=== PATIENT | female | born 1990 | race Caucasian/White ===

== ENCOUNTER 2018-05-07 15:50 | Inpatient (IN) | payer MEDICAID ==
[2018-05-07] MEDS ORDERED: RINGERS SOLUTION,LACTATED 300 ML IV ONE (16:14)
[2018-05-07] MEDS ORDERED: DINOPROSTONE 10 MG VAGINAL INSERT.SR PV PRN (16:14)
[2018-05-07] MEDS ORDERED: RINGERS SOLUTION,LACTATED 1,000 ML IV PRN (16:14)
--- NOTE | 2018-05-07 16:32 | Admission Physical ---
Datetime Report Generated by CPN: 05/07/2018 16:32 CURRENT ADMISSION Hx Assessment: The History has been Reviewed and is Current Chief Complaint: Signs/Symptoms Gestational HTN; Sent from OB Office for Evaluation and Treatment - Please Specify Indication for Induction- Other: high blood pressure 150/90s at [facility] Admit Impression : Term, Intrauterine ; No Active Labor Admit Plan: Admit to Unit; Initiate Labor Induction Protocol ALLERGIES Medication Allergies: No Medication Allergies: No Known Allergies (08/22/2016) Latex: No Latex Allergies Food Allergies: N/A Environmental Allergies: N/A OBSTETRICAL HISTORY EDC: 05/12/2018 00:00 : 2 Para: 1 Term: 1 : 0 SAB: 0 IAB: 0 Ectopic: 0 Livin Cesareans: 0 VBACs: 0 Multiple Births: 0 SEE RECORDS Alcohol: Yes Alcohol Frequency: Occasional Advised to Stop: Yes Alcohol Comments: wine Marijuana : No Cocaine: No Other Illicit Drugs: No Cigarettes: Current Everyday Smoker. [id number] Cigarette Frequency: 5 - 10 per day Advised to Stop: Yes PHYSICAL EXAM General: Normal HEENT: Deferred Neurologic: Deferred Thyroid: Deferred Heart: Normal Lungs: Normal Breast: Deferred Back: Deferred Abdomen: Normal Genitourinary Exam: Normal Extremities: Normal DTRs: Deferred Pelvic Type: Adequate Physical Exam Comments: Cervical exam per Dr. Marrero at [facility] today, 2/80/0 Vital Signs: Reviewed FETUS A EGA: 39.2 FHR- Baseline: 140 Presentation: Vertex Admit Comment: Hd transfer to [facility] at 22 wks, pt has not been seen since then until today. She denies any sx of htn/pre-eclampsia. 3wk AC lag on sono today, normal JOSE L. Tobacco abuse no other significant hx PLANS FOR LABOR AND DELIVERY Labor and Delivery: None Pain Management: Epidural Feeding Preference: Breast Benefit of Breast Feed Discussed: Yes Circumcision: Yes INFORMED CONSENT Assignment: Bethel Shelton MD Signature: with User ID: [email or web address] : with User ID: [email or web address]
[2018-05-07 16:53] LABS: APPEARANCE,URINE SLIGHTLY-CLOUDY; BILIRUBIN,URINE NEGATIVE (NEGATIVE); CALCIUM OXALATE CRYSTALS,URINE FEW /HPF; COLOR,URINE YELLOW; GLUCOSE, URINE NEGATIVE (NEGATIVE); KETONES,URINE TRACE mg/dL (NEGATIVE); LEUKOCYTE ESTERASE,URINE NEGATIVE (NEGATIVE); NITRITE,URINE NEGATIVE (NEGATIVE); PROTEIN,URINE NEGATIVE (NEGATIVE); URINE SPECIFIC GRAVITY 1.014; UROBILINOGEN,URINE NEGATIVE mg/dL (<2.0)
[2018-05-07 17:00] LABS: HEMATOCRIT 31.9 % (36.0-47.0); HEMOGLOBIN 10.7 g/dL (12.0-15.5); MEAN CORPUSCULAR HEMOGLOBIN 30.2 pg (27.0-33.4); MEAN CORPUSCULAR HGB CONC 33.6 g/dL (32.0-36.0); MEAN CORPUSCULAR VOLUME 90 fl (80-97); PLATELET COUNT 406 10^3/uL (150-450); RED BLOOD COUNT 3.55 10^6/uL (3.72-5.28); RED CELL DISTRIBUTION WIDTH 14.6 % (11.5-14.0); WHITE BLOOD COUNT 16.3 10^3/uL (4.0-10.5)
[2018-05-07 17:19] LABS: ABSOLUTE LYMPHOCYTES# (MANUAL) 2.9 10^3/uL (0.5-4.7); ABSOLUTE MONOCYTES # (MANUAL) 1.1 10^3/uL (0.1-1.4); ABSOLUTE NEUTROPHILS# (MANUAL) 12.1 10^3/uL (1.7-8.2); BASOPHILS % (MANUAL) 0 % (0-2); EOSINOPHILS % (MANUAL) 1 % (0-6); LYMPHOCYTES % (MANUAL) 18 % (13-45); MONOCYTES % (MANUAL) 7 % (3-13); SEGMENTED NEUTROPHILS % (MAN) 74 % (42-78); TOTAL CELLS COUNTED 100
[2018-05-07 17:20] LABS: URINE BARBITURATES SCREEN NEGATIVE; URINE BENZODIAZEPINES SCREEN NEGATIVE; URINE COCAINE SCREEN NEGATIVE; URINE MARIJUANA (THC) SCREEN NEGATIVE; URINE METHADONE SCREEN NEGATIVE; URINE PHENCYCLIDINE SCREEN NEGATIVE
[2018-05-07 17:20] LABS: ANISOCYTOSIS SLIGHT; PLATELET COMMENT ADEQUATE; TOXIC GRANULATION SLIGHT
[2018-05-07 17:24] LABS: URINE AMPHETAMINES SCREEN UNCONFIRMED POSITIVE
[2018-05-07] MEDS ORDERED: MAG HYDROX/AL HYDROX/SIMETH SUSP 30 ML UDCUP ONE (18:18)
[2018-05-07 18:20] LABS: CHLAM PCR NOT DETECTED (NOT DETECT); GON PCR NOT DETECTED (NOT DETECT)
[2018-05-07] MEDS ORDERED: DINOPROSTONE 10 MG VAGINAL INSERT.SR ONE (19:44)
[2018-05-07] MEDS ORDERED: NICOTINE 14 MG/24 HR PATCH.TD24 TD PRN (22:00)
[2018-05-08] MEDS ORDERED: MAG HYDROX/AL HYDROX/SIMETH SUSP 30 ML UDCUP ONE (02:35)
[2018-05-08] MEDS ORDERED: MAG HYDROX/AL HYDROX/SIMETH SUSP 30 ML UDCUP PO ONE (02:55)
[2018-05-08] MEDS ORDERED: PENICILLIN G-K 5 MILLION UNIT VIAL ONE ×3 (03:59→12:53)
[2018-05-08] MEDS ORDERED: PENICILLIN G-K 5 MILLION UNIT VIAL IV ONE (04:00)
[2018-05-08] MEDS ORDERED: OXYTOCIN/NORMAL SALINE 1,000 ML IV PRN (04:00)
[2018-05-08] MEDS ORDERED: PENICILLIN G POTASSIUM 5,000,000 UNIT in DEXTROSE 5%-WATER 100 ML IV ONE (05:00)
[2018-05-08] MEDS ORDERED: OXYTOCIN/NORMAL SALINE 20 UNIT/1,000 ML RTUINJ IV PRN ×2 (05:30→16:23)
[2018-05-08] MEDS ORDERED: OXYTOCIN/NORMAL SALINE 20 UNIT/1,000 ML RTUINJ ONE ×2 (05:41→18:13)
[2018-05-08] MEDS ORDERED: LIDOCAINE 1% INJ-PF (10 MG/ML) 30 ML SDV ONE (05:41)
[2018-05-08] MEDS ORDERED: MISOPROSTOL 0.2 MG TABLET ONE ×2 (05:41→17:55)
[2018-05-08] MEDS: PENICILLIN G POTASSIUM 2,500,000 UNIT in DEXTROSE 5%-WATER 50 ML IV SCH ×3 (13:01→23:04)
[2018-05-08] MEDS ORDERED: PHENYLEPHRINE HCL INJ/PF 10 MG/1 ML SDV ONE (14:09)
[2018-05-08] MEDS ORDERED: EPHEDRINE SULFATE INJ 50 MG/1 ML AMPULE ONE (14:09)
[2018-05-08] MEDS ORDERED: FENTANYL CITRATE INJ/PF 100 MCG/2 ML AMPUL ONE (14:09)
[2018-05-08] MEDS ORDERED: FENTANYL/BUPIVACAINE/NS/PF 200 MCG/100 ML RTUINJ EPI ONE (14:10)
[2018-05-08] MEDS ORDERED: BUPIVACAINE HCL 0.5 % INJ/PF 30 ML SDV ONE (14:11)
[2018-05-08] MEDS ORDERED: ZOLPIDEM TARTRATE 5 MG TABLET PO PRN (16:23)
[2018-05-08] MEDS ORDERED: PROMETHAZINE HCL INJ 25 MG/1 ML VIAL IV PRN (16:23)
[2018-05-08] MEDS ORDERED: PROMETHAZINE HCL 25 MG SUPP.RECT PR PRN (16:23)
[2018-05-08] MEDS ORDERED: DIPHENHYDRAMINE HCL 25 MG CAPSULE PO PRN (16:23)
[2018-05-08] MEDS ORDERED: DIPH/PERTUSS(ACELL)/TETANUS VAC/PF 0.5 ML SYR (>=10YO) IM PRN (16:23)
[2018-05-08] MEDS ORDERED: BENZOCAINE/MENTHOL AEROSOL SPRAY 56 ML TOP PRN (16:23)
[2018-05-08] MEDS ORDERED: GLYCERIN/WITCH HAZEL LEAF 1 EACH MED..PAD TP PRN (16:23)
[2018-05-08] MEDS ORDERED: PROMETHAZINE HCL 25 MG TABLET PO PRN (16:23)
[2018-05-08] MEDS ORDERED: MAGNESIUM HYDROXIDE SUSP 30 ML UDCUP PO PRN (16:23)
[2018-05-08] MEDS ORDERED: MEASLES,MUMPS&RUBELLA VACC/PF 0.5 ML VIAL SUBCUT PRN (16:23)
[2018-05-08] MEDS ORDERED: PSEUDOEPHEDRINE HCL 30 MG TABLET PO PRN (16:23)
[2018-05-08] MEDS ORDERED: ACETAMINOPHEN 650 MG SUPP.RECT PR PRN (16:23)
[2018-05-08] MEDS ORDERED: DIBUCAINE 1% OINTMENT 28 GM TP PRN (16:23)
[2018-05-08] MEDS ORDERED: NA PHOS,M-B/NA PHOS,DI-BA (ADULT) 133 ML ENEMA PR PRN (16:23)
[2018-05-08] MEDS ORDERED: ACETAMINOPHEN WITH CODEINE #3 TABLET PO PRN (16:23)
--- NOTE | 2018-05-08 17:42 | Delivery Summary ---
Del Sum A-C Datetime Report Generated by CPN: 05/08/2018 17:41 DELIVERY PERSONNEL DELIVERY PERSONNEL: [id number] Delivery Doctor:: Caprice Mann CNM Anesthesiologist:: Jayleen Frederick MD Labor and Delivery Nurse:: Girma Grier RNcurb supervisor Nurse:: YEISON Berry Nursery Nurse:: Smiley Smallwood RN Air Conditioning Sheet Metal Installer/SURVEYOR OIL WELL DIRECTIONAL: Sandie Garrison CNA II Air Conditioning Sheet Metal Installer/SURVEYOR OIL WELL DIRECTIONAL: Henny Hernandez, ST MATERNAL INFORMATION Delivery Anesthesia: Epidural Medications After Delivery: Pitocin Bolus-Please Comment Meds After Delivery Comment: 20 units pitocin in 1000mlNS Maternal Complications: None Provider Comments: ROP VIABLE MALE INFANT WITH SPONTANEOUS CRY. CORD DOUBLE CLAMPED AND CUT. PLACENTA EXPRESSED INTACT WITH 3VC. NO LACERATIONS. MOTHER AND INFANT STABLE IN L_D #6 LABOR SUMMARY EDC: 05/12/2018 00:00 No. Babies in Womb: 1 Attempted: No Labor Anesthesia: Epidural LABOR INFORMATION Reason for Induction: Gestational Hypertension Onset of Labor: 05/08/2018 11:00 Complete Dilatation: 05/08/2018 14:36 Oxytocin: Induction Group B Beta Strep: Unknown Antibiotics # of Doses: 3 Antibiotics Time of Last Dose: 1301 Name of Antibiotic Given: penicillin Steroids Given: None Reason Steroids Not Administered: Not Applicable MEMBRANES Membranes Rupture Method: Artificial Rupture of Membranes: 05/08/2018 10:36 Length of Rupture (hr): 4.62 Amniotic Fluid Color: Clear Amniotic Fluid Amount: Moderate Amniotic Fluid Odor: Normal STAGES OF LABOR Stage 1 hr: 3 Stage 1 min: 36 Stage 2 hr: 0 Stage 2 min: 37 Stage 3 hr: 0 Stage 3 min: 8 Total Time in Labor hr: 4 Total Time in Labor min: 21 VAGINAL DELIVERY Episiotomy: None Laceration #1: None Laceration Extension #1: N/A Laceration Repair: Not Applicable Sponge Count Correct: N/A CSECTION DELIVERY Primary Indication: N/A Secondary Indication: N/A CSection Incidence: N/A Labor: N/A Elective: N/A CSection Incision: N/A BABY A INFORMATION Infant Delivery Date/Time: 05/08/2018 15:13 Method of Delivery: Vaginal Born in Route : No : N/A Forceps: N/A Vacuum Extraction: N/A Shoulder Dystocia : No PRESENTATION/POSITION BABY A Presentation: Cephalic Cephalic Presentation: Vertex Vertex Position: Right Occipital Posterior Breech Presentation: N/A PLACENTA INFORMATION BABY A Placenta Delivery Time : 05/08/2018 15:21 Placenta Method of Delivery: Expressed Placenta Status: Delivered SCORES BABY A Heart Rate 1 min: >100 bpm Resp Effort 1 min: Good Cry Reflex Irritability 1 min: Cough or Sneeze or Pulls Away Muscle Tone 1 min: Active Motion Color 1 min: Blue/Pale Resuscitation Effort 1 min: Tactile Stimulation SCORE 1 MIN: 8 Heart Rate 5 min: >100 bpm Resp Effort 5 min: Good Cry Reflex Irritability 5 min: Cough or Sneeze or Pulls Away Muscle Tone 5 min: Active Motion Color 5 min: Body [place], Extremities Blue SCORE 5 MIN: 9 INFANT INFORMATION BABY A Gestational Age at Delivery: 39.3 Gestational Status: Full Term- 39- 40.6 Weeks Infant Outcome : Liveborn Condition : Stable Sex: Male IDENTIFICATION BABY A Verification Date/Time: 05/08/2018 15:27 ID Band Number: [id number] Mother's Name Verified: Yes RN Verifying Infant: Abhi Grier RN Additional Verifying Personnel: SJose Garrison CNA2 WEIGHT/LENGTH BABY A Infant Birthweight (gm): 3040 Weight (lb): 6 Weight (oz): 11 Infant Length (in): 20.00 Length (cm): 50.80 CORD INFORMATION BABY A No. Cord Vessels: 3 Nuchal Cord : N/A Cord Blood Taken: Yes-For Eval (Mom's Blood Type - or O+) Suction: None ASSESSMENT BABY A Skin to Skin: Yes Skin to Skin Time (min): 60 SIGNATURES Assignment: Joselito Lund MD Signature: with User ID: [email or web address] : with User ID: [email or web address] : I was personally available for consultation and serving as supervising physician for the P.
--- NOTE | 2018-05-08 18:02 | Warning Signs in Babies ---
VOD Warning Signs Datetime Report Generated by [facility]: 05/08/2018 18:01 VOD#[id number] -Warning Signs in Babies: Viewed with Parent(s)/Family (05/08/2018 18:00:Girma Grier RN)
[2018-05-08] MEDS ORDERED: METHYLERGONOVINE MALEATE INJ/PF 0.2 MG/1 ML AMPULE ONE (18:15)
[2018-05-08] MEDS ORDERED: ACETAMINOPHEN 325 MG TABLET PO ONE (18:42)
[2018-05-08] MEDS ORDERED: CARBOPROST TROMETHAMINE INJ 250 MCG/1 ML AMPULE IM ONE (18:46)
[2018-05-08] MEDS ORDERED: LOPERAMIDE HCL 2 MG CAPSULE PO ONE (18:47)
[2018-05-08] MEDS ORDERED: ACETAMINOPHEN 325 MG TABLET ONE (18:53)
[2018-05-08] MEDS ORDERED: LOPERAMIDE HCL 2 MG CAPSULE ONE ×2 (18:53→19:04)
[2018-05-08] MEDS ORDERED: CARBOPROST TROMETHAMINE INJ 250 MCG/1 ML AMPULE ONE (18:53)
[2018-05-08 19:37] LABS: HEMATOCRIT 27.4 % (36.0-47.0); HEMOGLOBIN 9.3 g/dL (12.0-15.5); MEAN CORPUSCULAR HEMOGLOBIN 30.6 pg (27.0-33.4); MEAN CORPUSCULAR VOLUME 90 fl (80-97); PLATELET COUNT 353 10^3/uL (150-450); RED BLOOD COUNT 3.05 10^6/uL (3.72-5.28); RED CELL DISTRIBUTION WIDTH 14.5 % (11.5-14.0)
[2018-05-08] MEDS ORDERED: IBUPROFEN 800 MG TABLET ONE (19:47)
[2018-05-08 19:53] LABS: ABSOLUTE LYMPHOCYTES# (MANUAL) 2.3 10^3/uL (0.5-4.7); ABSOLUTE MONOCYTES # (MANUAL) 1.6 10^3/uL (0.1-1.4); ABSOLUTE NEUTROPHILS# (MANUAL) 19.1 10^3/uL (1.7-8.2); ANISOCYTOSIS SLIGHT; BASOPHILS % (MANUAL) 0 % (0-2); EOSINOPHILS % (MANUAL) 0 % (0-6); LYMPHOCYTES % (MANUAL) 10 % (13-45); MONOCYTES % (MANUAL) 7 % (3-13); PLATELET COMMENT ADEQUATE; SEGMENTED NEUTROPHILS % (MAN) 83 % (42-78); TOTAL CELLS COUNTED 100; TOXIC GRANULATION SLIGHT
[2018-05-08] MEDS: DOCUSATE SODIUM 100 MG CAPSULE PO SCH (23:00)
[2018-05-08] MEDS: FERROUS SULFATE 325 MG TABLET PO SCH (23:00)
[2018-05-08] MEDS: FAMOTIDINE 20 MG TABLET PO SCH (23:02)
[2018-05-08] MEDS: IBUPROFEN 800 MG TABLET PO SCH (23:02)
[2018-05-09] MEDS: ACETAMINOPHEN WITH CODEINE #3 TABLET PO PRN (00:28)
[2018-05-09] MEDS: IBUPROFEN 800 MG TABLET PO SCH ×3 (05:35→22:42)
[2018-05-09 07:29] LABS: HEMATOCRIT 18.4 % (36.0-47.0); MEAN CORPUSCULAR HEMOGLOBIN 30.9 pg (27.0-33.4); MEAN CORPUSCULAR HGB CONC 33.8 g/dL (32.0-36.0); MEAN CORPUSCULAR VOLUME 91 fl (80-97); PLATELET COUNT 265 10^3/uL (150-450); RED BLOOD COUNT 2.02 10^6/uL (3.72-5.28); RED CELL DISTRIBUTION WIDTH 14.6 % (11.5-14.0); WHITE BLOOD COUNT 14.3 10^3/uL (4.0-10.5)
[2018-05-09 07:43] LABS: HEMOGLOBIN 6.2 g/dL (12.0-15.5)
[2018-05-09] MEDS: PRENATAL VITAMIN W DHA CAPSULE PO SCH (09:54)
[2018-05-09] MEDS: FERROUS SULFATE 325 MG TABLET PO SCH ×2 (09:54→18:14)
[2018-05-09] MEDS: SENNOSIDES/DOCUSATE 8.6-50 MG 1 EACH TABLET PO SCH (09:54)
[2018-05-09] MEDS: DOCUSATE SODIUM 100 MG CAPSULE PO SCH ×2 (09:54→18:14)
[2018-05-09] MEDS: FAMOTIDINE 20 MG TABLET PO SCH ×2 (09:54→22:42)
--- NOTE | 2018-05-09 11:11 | PDOC PROGRESS REPORT ---
Subjective-OB Progress Note for:: 05/09/18 Subjective: reports bleeding slowing, pain controlled with current meds, denies headache/SOB /dizziness/lightheadedness/extreme fatigue-discussed with Dr Gregorio-blood transfusion still recommended Physical Exam (OB) Vital Signs: Temp Pulse Resp BP Pulse Ox 98.4 F 97 18 132/62 H 98 05/09/18 07:42 05/09/18 07:42 05/09/18 07:42 05/09/18 07:42 05/09/18 07:42 Intake & Output 05/08/18 05/09/18 05/10/18 06:59 06:59 06:59 Weight 73.3 kg - Abdomen Description: Soft, Round Hernia Present: No Fundal Description: Firm, Midline Fundal Height: u/u - u/2 - Abdominal Tenderness: Nontender - Extremities Lower extremities: Juan's sign - neg Calf: Normal, Nontender Objective-Diagnostic Laboratory: 05/09/18 06:38 05/07/18 05/08/18 05/09/18 16:45 19:20 06:38 WBC 23.0 H 14.3 H RBC 3.05 L 2.02 L Hgb 9.3 L 6.2 L D Hct 27.4 L 18.4 L MCV 90 91 MCH 30.6 30.9 MCHC 34.0 33.8 RDW 14.5 H 14.6 H Plt Count 353 265 Seg Neutrophils % Not Reportable Lymphocytes % Not Reportable Monocytes % Not Reportable Eosinophils % Not Reportable Basophils % Not Reportable Absolute Neutrophils Not Reportable Absolute Lymphocytes Not Reportable Absolute Monocytes Not Reportable Absolute Eosinophils Not Reportable Absolute Basophils Not Reportable Blood Type O POSITIVE Antibody Screen NEGATIVE 05/07/18 16:19 Vaginal/Anorectal Group B Streptococcus Culture - Final NO GROUP B STREPTOCOCCUS RECOVERED Assessment and Plan(PN) - Assessment and Plan (1) Anemia due to acute blood loss Is this a current diagnosis for this admission?: Yes (2) Vaginal delivery Is this a current diagnosis for this admission?: Yes - Time Spent with Patient Time with patient: Less than 15 minutes - Disposition Anticipated Discharge: Home Within: within 24 hours
[2018-05-09 23:15] LABS: ABSOLUTE EOSINOPHILS # (AUTO) 0.1 10^3/uL (0.0-0.6); ABSOLUTE LYMPHOCYTES (AUTO) 3.2 10^3/uL (0.5-4.7); ABSOLUTE NEUT (AUTO) 10.5 10^3/uL (1.7-8.2); BASOPHILS % (AUTO) 0.3 % (0-2); EOSINOPHILS % (AUTO) 0.5 % (0-6); HEMATOCRIT 25.7 % (36.0-47.0); LYMPHOCYTES % (AUTO) 21.5 % (13-45); MEAN CORPUSCULAR HEMOGLOBIN 30.1 pg (27.0-33.4); MEAN CORPUSCULAR HGB CONC 33.9 g/dL (32.0-36.0); MEAN CORPUSCULAR VOLUME 89 fl (80-97); MONOCYTES % (AUTO) 7.1 % (3-13); PLATELET COUNT 281 10^3/uL (150-450); RED BLOOD COUNT 2.89 10^6/uL (3.72-5.28); RED CELL DISTRIBUTION WIDTH 15.7 % (11.5-14.0); SEGMENTED NEUTROPHILS % (AUTO) 70.6 % (42-78); TOTAL CELLS COUNTED % (AUTO) 100 %; WHITE BLOOD COUNT 14.8 10^3/uL (4.0-10.5)
[2018-05-09 23:16] LABS: HEMOGLOBIN 8.7 g/dL (12.0-15.5)
[2018-05-10] MEDS: ACETAMINOPHEN WITH CODEINE #3 TABLET PO PRN (02:06)
[2018-05-10] MEDS: IBUPROFEN 800 MG TABLET PO SCH (06:09)
--- NOTE | 2018-05-10 10:43 | PDOC DISCHARGE SUMMARY ---
Final Diagnosis Discharge Date: 05/10/18 - Final Diagnosis (1) Anemia due to acute blood loss Is this a current diagnosis for this admission?: Yes (2) Vaginal delivery Is this a current diagnosis for this admission?: Yes Discharge Data - Discharge Medication Prescriptions: Ibuprofen [Motrin 800 mg Tablet] 800 mg PO Q8HP PRN #60 tablet PRN Reason: Home Medications: Vit No.130/Iron/Folic [ Tablet] 1 each PO DAILY 05/07/18 Ferrous Sulfate [Feosol 325 mg Tablet] 325 mg PO BID tablet 05/10/18 Ibuprofen [Motrin 800 mg Tablet] 800 mg PO Q8HP PRN #60 tablet 05/10/18 Reason(s) for Admission: Induction of Labor Procedures: NST Intrapartum Procedure(s): Spontaneous Vaginal Delivery - Diagnosis Test Laboratory: Temp Pulse Resp BP Pulse Ox 97.9 F 70 14 124/69 99 05/10/18 07:35 05/10/18 07:35 05/10/18 07:35 05/10/18 07:35 05/10/18 07:35 05/07/18 05/07/18 05/08/18 16:19 16:45 19:20 RBC 3.55 L 3.05 L Hgb 10.7 L 9.3 L Hct 31.9 L 27.4 L Urine Opiates Screen NEGATIVE 05/09/18 05/09/18 06:38 22:35 RBC 2.02 L 2.89 L Hgb 6.2 L D 8.7 L D Hct 18.4 L 25.7 L Urine Opiates Screen - Discharge information/Instructions Discharge Activity: Balance Activity w/Rest, Pelvic Rest Discharge Diet: Regular Disposition: HOME, SELF-CARE Follow up with: [facility] in: 4, Weeks
[2018-05-10] MEDS: PRENATAL VITAMIN W DHA CAPSULE PO SCH (10:48)
[2018-05-10] MEDS: FERROUS SULFATE 325 MG TABLET PO SCH (10:48)
[2018-05-10] MEDS: FAMOTIDINE 20 MG TABLET PO SCH (10:49)
[2018-05-10] MEDS: SENNOSIDES/DOCUSATE 8.6-50 MG 1 EACH TABLET PO SCH (10:49)
[2018-05-10] MEDS: DOCUSATE SODIUM 100 MG CAPSULE PO SCH (10:49)
[2018-05-10 11:09] VITALS: BP 137/81
== END 2018-05-10 14:29 | disposition home or self-care (01) | DRG 775 ==
LOC: LC 15:50 → EEVIPCON 16:27 → LR 16:27 → 2S 05-08 22:00
PROVIDERS: ADMIT Obstetrics & Gynecology; ATTEND Obstetrics & Gynecology
PROC: 4A1HXCZ Monitoring of Products of Conception, Cardiac Rate, External Approach (ICD-10-PCS; 2018-05-07)
PROC: 10E0XZZ Delivery of Products of Conception, External Approach (ICD-10-PCS; principal; 2018-05-08)
PROC: 3E033VJ Introduction of Other Hormone into Peripheral Vein, Percutaneous Approach (ICD-10-PCS; 2018-05-08)
PROC: 10907ZC Drainage of Amniotic Fluid, Therapeutic from Products of Conception, Via Natural or Artificial Opening (ICD-10-PCS; 2018-05-08)
PROC: 30233N1 Transfusion of Nonautologous Red Blood Cells into Peripheral Vein, Percutaneous Approach (ICD-10-PCS; 2018-05-09)
DX: O13.4 Gestational [pregnancy-induced] hypertension without significant proteinuria, complicating childbirth (principal); D62 Acute posthemorrhagic anemia; O99.02 Anemia complicating childbirth; O99.334 Smoking (tobacco) complicating childbirth; F17.210 Nicotine dependence, cigarettes, uncomplicated; Z3A.39 39 weeks gestation of pregnancy; Z37.0 Single live birth
CPT/HCPCS: 36415; 36430; 80307; 81001; 83036; 85025; 85027; 86592; 86701; 86850; 86900; 86901; 86920; 87081; 87491; 87591; 94760; G0480; J2210; J2370; J2540; J2590; J3010; J3490; P9016